=== PATIENT | male | born 1985 | race Caucasian/White ===

== ENCOUNTER 2022-08-06 08:22 | Emergency (ER) | payer OTHER ==
[2022-08-06] VITALS (14 sets, daily range): BP systolic 132–192; BP diastolic 65–122
[~2022-08-06] VITALS: Ht 198.1 cm; Wt 136.0 kg
[2022-08-06] MEDS ORDERED: ZESTRIL10 M1 PO (10:44)
[2022-08-06] MEDS ORDERED: PERCOCET 5/325M1 TAB PO (10:44)
[2022-08-06] MEDS ORDERED: ZOFRAN4 MG/TAB PO (10:44)
[2022-08-09] MEDS ORDERED: CIALIS5 MG PO (12:48)
== END 2022-08-06 11:05 | disposition home or self-care (01) | DRG 563 ==
LOC: ED 08:22
PROC: 2W3CX1Z Immobilization of Right Lower Arm using Splint (ICD-10-PCS; principal; 2022-08-06)
DX: S52.501A Unspecified fracture of the lower end of right radius, initial encounter for closed fracture (principal); S52.611A Displaced fracture of right ulna styloid process, initial encounter for closed fracture; V18.0XXA Pedal cycle driver injured in noncollision transport accident in nontraffic accident, initial encounter; Y93.55 Activity, bike riding; Y92.009 Unspecified place in unspecified non-institutional (private) residence as the place of occurrence of the external cause

== ENCOUNTER 2022-08-12 09:04 | Day surgery (SDC) | payer OTHER ==
[~2022-08-12] VITALS: Ht 198.1 cm; Wt 139.7 kg
[~2022-08-12 09:04] MED LIST: CIALIS5 MG PO; PERCOCET 5/325M1 TAB PO; ZESTRIL10 M1 PO; ZOFRAN4 MG/TAB PO
[2022-08-12] MEDS ORDERED: MULT VITAMI1 PO (09:33)
[2022-08-12 13:37] VITALS: BP 188/96
== END 2022-08-12 14:10 | disposition home or self-care (01) | DRG 512 ==
LOC: ORM 09:04
PROVIDERS: ATTEND Orthopaedic Surgery
PROC: 0PSH04Z Reposition Right Radius with Internal Fixation Device, Open Approach (ICD-10-PCS; principal; 2022-08-12)
PROC: 3E0T3BZ Introduction of Anesthetic Agent into Peripheral Nerves and Plexi, Percutaneous Approach (ICD-10-PCS; 2022-08-12)
DX: S52.561A Barton's fracture of right radius, initial encounter for closed fracture (principal); I10 Essential (primary) hypertension; V18.0XXA Pedal cycle driver injured in noncollision transport accident in nontraffic accident, initial encounter; Y93.55 Activity, bike riding
CPT/HCPCS: J0131